=== PATIENT | female | born 1955 | race Caucasian/White ===

== ENCOUNTER 2023-01-06 09:04 | Day surgery (SDC) | payer MEDICARE, OTHER ==
[~2023-01-06] VITALS: Ht 157.5 cm; Wt 38.8 kg
[2023-01-06] VITALS (7 sets, daily range): BP systolic 126–137; BP diastolic 46–82; PULSE 76–85; RESP 18; TEMP 97.8; O2SAT 98–100
[2023-01-06] MEDS ORDERED: albumin 25% 100mL bottle x 1 IV PRN (09:20)
[2023-01-06] MEDS ORDERED: LIDOcaine 1% 30ml preserv. free vial SQ STA (09:26)
[2023-01-06] MEDS ORDERED: ONDA4TAB12 PO (10:31)
[2023-01-06] MEDS ORDERED: PANT-47 PO (10:31)
[2023-01-06] MEDS ORDERED: SPIR25TA5 PO (10:31)
[2023-01-06] MEDS ORDERED: HYDR-3686 PO (10:31)
[2023-01-06 11:59] LABS: GLUCOSE,BODY FLUID 82 MG/DL; LDH,BODY FLUID 50 U/L
[2023-01-06 12:19] LABS: TOTAL PROTEIN,BODY FLUID < 2.0 G/DL
== END 2023-01-06 10:40 | disposition home or self-care (01) ==
LOC: SSTAY O 09:04
PROVIDERS: ATTEND Radiology Vascular & Interventional Radiology
DX: R18.8 Other ascites (principal); K74.60 Unspecified cirrhosis of liver; B19.20 Unspecified viral hepatitis C without hepatic coma; D64.9 Anemia, unspecified; Z88.5 Allergy status to narcotic agent; Z88.2 Allergy status to sulfonamides; Z79.899 Other long term (current) drug therapy; Z98.890 Other specified postprocedural states
CPT/HCPCS: 49083; 82945; 83615; 84157; 87070; C1729; J3490; A6258

== ENCOUNTER 2023-01-08 02:00 | Emergency (ER) | payer MEDICARE, OTHER ==
[~2023-01-08] VITALS: Ht 157.5 cm; Wt 38.2 kg
[~2023-01-08 02:00] MED LIST: HYDR-3686 PO; ONDA4TAB12 PO; PANT-47 PO; SPIR25TA5 PO
[2023-01-08 02:25] VITALS: BP 136/89; PULSE 93; RESP 18; O2SAT 100
[2023-01-08 02:54] LABS: BASOPHILS % (AUTO) 0.9 % (0-1); EOSINOPHILS # (AUTO) 0.1 X10'3 (0-0.9); EOSINOPHILS % (AUTO) 1.3 % (0-6); HEMATOCRIT 37.6 % (35.0-45.0); HEMOGLOBIN 13.1 g/dl (12.0-16.0); LYMPHOCYTES % (AUTO) 18.6 % (21-51); MEAN CORPUSCULAR HGB CONC 34.9 g/dL (33.0-36.5); MEAN CORPUSCULAR VOLUME 94.6 FL (78-98); MEAN PLATELET VOLUME 8.3 FL (7.4-10.4); MONOCYTES # (AUTO) 0.5 X10'3 (0-0.9); NEUTROPHILS # (AUTO) 3.7 X10'3 (1.8-7.7); NEUTROPHILS % (AUTO) 70.2 % (42-75); PLATELET COUNT 83 X10'3 (140-440); RED BLOOD COUNT 3.97 X10'6 (4.20-5.60); RED CELL DISTRIBUTION WIDTH 21.6 % (11.5-14.5); WHITE BLOOD COUNT 5.3 X10'3 (4.5-11.0)
[2023-01-08 03:05] LABS: ALANINE AMINOTRANSFERASE 20 U/L (12-78); ALBUMIN 3.6 G/DL (3.4-5.0); ALBUMIN/GLOBULIN RATIO 1.4 (1.1-1.5); ALKALINE PHOSPHATASE 59 IU/L (46-116); ANION GAP 14 (8-16); ASPARTATE AMINO TRANSFERASE 43 U/L (10-37); BILIRUBIN,TOTAL 1.8 MG/DL (0.1-1.0); BLOOD UREA NITROGEN 14 MG/DL (7-18); BUN/CREATININE RATIO 18.2 (10.0-20.0); CALCIUM 8.6 MG/DL (8.5-10.1); CHLORIDE 94 MMOL/L (99-107); CREATININE 0.77 MG/DL (0.40-0.90); GLUCOSE 88 MG/DL (70-104); SODIUM 128 MMOL/L (135-145); TOTAL CARBON DIOXIDE 20.3 MMOL/L (24-32); TOTAL PROTEIN 6.2 G/DL (6.4-8.2); eGFR 75 ML/MIN
[2023-01-08 03:14] LABS: MAGNESIUM 1.6 MG/DL (1.5-2.4)
[2023-01-08 04:29] LABS: ANISOCYTOSIS 3+; PLATELET ESTIMATE DECREASED
== END 2023-01-08 05:51 | disposition left against medical advice (07) ==
LOC: ER 02:01
DX: R19.7 Diarrhea, unspecified (principal); Z53.21 Procedure and treatment not carried out due to patient leaving prior to being seen by health care provider
CPT/HCPCS: 36415; 80053; 83735; 83880; 84484; 85008; 85025; 93005; 99281

== ENCOUNTER 2024-04-13 14:30 | Outpatient (CLI) | payer MEDICARE, OTHER ==
[~2024-04-13 14:30] MED LIST changes: +ONDA-243 PO; -ONDA4TAB12 PO
== END 2024-04-13 23:59 | disposition home or self-care (01) ==
LOC: MRI 14:30
PROVIDERS: ATTEND Physician Assistant Surgical
DX: S32.020A Wedge compression fracture of second lumbar vertebra, initial encounter for closed fracture (principal); S22.080A Wedge compression fracture of T11-T12 vertebra, initial encounter for closed fracture; S72.91XA Unspecified fracture of right femur, initial encounter for closed fracture; M25.561 Pain in right knee; M81.0 Age-related osteoporosis without current pathological fracture; E83.51 Hypocalcemia; M79.661 Pain in right lower leg; M79.671 Pain in right foot; M54.50 Low back pain, unspecified; M48.07 Spinal stenosis, lumbosacral region; M54.6 Pain in thoracic spine; X58.XXXA Exposure to other specified factors, initial encounter; Y93.89 Activity, other specified; Y92.89 Other specified places as the place of occurrence of the external cause; Y99.8 Other external cause status
CPT/HCPCS: 72148

== ENCOUNTER 2024-08-13 13:25 | Outpatient (CLI) | payer MEDICARE, OTHER | END 2024-08-13 23:59 | disposition home or self-care (01) | LOC: RAD 13:25 | PROVIDERS: ATTEND Otolaryngology | DX: R13.14 Dysphagia, pharyngoesophageal phase (principal); R05.9 Cough, unspecified | CPT/HCPCS: 74230 ==